=== PATIENT | female | born 1960 | race Caucasian/White ===

== ENCOUNTER 2019-02-08 10:30 | Day surgery (SDC) | payer MEDICARE ==
[2019-02-07 14:11] LABS: HEMATOCRIT 41.1 % (36.0-48.0); HEMOGLOBIN 13.9 g/dL (12-16); MCH 29.1 pg (26.0-34.0); MCHC 33.8 g/dL (31.0-37.0); MCV 86.2 fL (80.0-100.0); MEAN PLATELET VOLUME 8.9 fL (7.4-10.4); RBC 4.77 10x6/uL (4.00-5.40); RDW 13.8 % (11.5-14.5)
[~2019-02-08] VITALS: Ht 167.6 cm; Wt 88.5 kg
[~2019-02-08 10:30] MED LIST: ARMOUR THYROID120 MG; CALCIUM 600 +1 EAC3; CIMETIDINE200 MG; CYCLOBENZAPRINE10 MG; CYMBALTA60 MG PO; MAGNESIUM OXID500 MG; MEGARED FISH OIL; PROBIOTIC1 EAC1; ZYRTEC10 MG PO
[2019-02-08 11:20] VITALS: BP 140/83; Ht 167.6 cm; Wt 88.5 kg
[2019-02-08] MEDS ORDERED: HYDROCODON-ACE1 EA10 PO (14:49)
--- NOTE | 2019-02-08 17:05 | NUR ---
DISCHARGE INSTRUCTIONS REVIEWED WITH PATIENT AND MOTHER. PATIENT'S O2 SAT ON RA 93%. DISCHARGED HOME VIA WHEELCHAIR TO PRIVATE VEHICLE WITH MOTHER
--- NOTE | 2019-02-12 07:51 | OP ---
PATIENT NAME: BRADLY KULKARNI MEDICAL RECORD: [id number] :60 LOCATION:[facility] ADMISSION DATE: SURGEON: DAVID ROGERS MD DATE OF OPERATION: 02/08/2019 PREOPERATIVE DIAGNOSES: 1. Peroneal tendon tendinitis. 2. Peroneal tendon tear. POSTOPERATIVE DIAGNOSES: 1. Peroneal tendon tendinitis. 2. Peroneal tendon tear. PROCEDURES: 1. Peroneal tendon debridement. 2. Peroneal tendon repair. 3. Application of platelet rich plasma to peroneal nerve tendon. SURGEON: David Rogers MD BOWLING ALLEY MECHANIC: Willis Charles ANESTHESIA: General. INTRAOPERATIVE COMPLICATIONS: None. SUMMARY OF PATHOLOGIC FINDINGS: Upon entering the peroneal tendon sheath, the peroneus longus was found to have significant sagittal splitting, bulbous hypertrophic response with a very tight peroneal tendon or tendon sheath. This required debulking repair as well as platelet rich plasma application. OPERATIVE SUMMARY IN DETAIL: After obtaining the appropriate preoperative orthopedic surgery consent as well as anesthetic consultation, evaluation, and clearance, the patient was brought to the operating room and placed on the operating table in supine position. After general laryngeal mask airway was administered, the patient was placed in a left lateral decubitus position. All pressure points were well padded to include down leg peroneal pad as well as axillary roll. The patient was held firmly to the operating table using the vacuum pack suction system. Right lower extremity was then prepped and draped in routine sterile fashion. The leg was elevated and exsanguinated, tourniquet was inflated to 350 mmHg. Curvilinear incision was made of the posterior aspect of the lateral malleolus. Dissection was taken down to the peroneus longus and tendon sheath. This was incised to reveal the pathologic findings as noted above. This was much more pathologic than described on the MRI. Debulking of the tendon was followed by release of the tendinous sheath distally. After debulking was carried out to create a more normal appearing tendon, the tendon was reapproximated in the sagittal plane using a 2-0 Ethibond in a running fashion. The stitch was used to reapproximate normal tendon closing the sagittal split. Having completed this, the tendon sheath itself was gently tacked back together in a more loose fashion. The area was then infiltrated copiously with a PRP. Final skin closure was achieved with 2-0 Vicryl and 4-0 Prolene in running fashion. Sterile dressings were applied. L&U splint was applied. The patient was awakened, taken to the recovery room in stable condition. All final needle and sponge counts were correct. OPERATIVE REPORT [id number] BRADLY KULKARNI TRANSINT:[id number] Voice Confirmation ID: [id number] DOCUMENT ID: [id number] SUE ROBINS, DAVID MADRID at 0751 CC: [id number] DICTATION DATE: 02/09/19 1149 [employer] ENGINEER: 02/09/19 1427 [facility] 02/08/19 [id number] [place] [address]
== END 2019-02-08 17:05 | disposition home or self-care (01) ==
LOC: D.OPS 10:30 → D.PAN 11:00 → D.OPS 11:30
PROVIDERS: Anesthesiology; ATTEND Orthopaedic Surgery
DX: M76.71 Peroneal tendinitis, right leg (principal); S86.311A Strain of muscle(s) and tendon(s) of peroneal muscle group at lower leg level, right leg, initial encounter; X58.XXXA Exposure to other specified factors, initial encounter; Z01.812 Encounter for preprocedural laboratory examination
CPT/HCPCS: 28200; 0232T